=== PATIENT | male | born 1975 | race African-American/Black ===

== ENCOUNTER 2022-10-23 11:12 | Emergency (ER) | payer OTHER ==
[~2022-10-23] VITALS: Ht 180.3 cm; Wt 65.8 kg
--- NOTE | 2022-10-23 11:42 | NUR ---
Dr Buchanan at the bedside [facility].
--- NOTE | 2022-10-23 11:57 | NUR ---
Irrigated BERNARDO ears, per Md order, pt tolorated well.
[2022-10-23 12:10] VITALS: BP 140/77; O2SAT 100
--- NOTE | 2022-10-23 12:10 | NUR ---
Patient discharged to home in stable condition. Written and verbal after care instructions given. Patient verbalizes understanding of instructions. Stressed follow up or return to ER for worsening s/s.
== END 2022-10-23 12:11 | disposition home or self-care (01) ==
LOC: ER 11:12
DX: H61.23 Impacted cerumen, bilateral (principal)
CPT/HCPCS: A4663